=== PATIENT | female | born 1955 | race Caucasian/White ===

== ENCOUNTER → 2018-03-19 | Outpatient (CLI) | payer BC | END | disposition home or self-care (01) | LOC: CFH 14:35 | PROVIDERS: ATTEND Family Medicine | DX: Z12.31 Encounter for screening mammogram for malignant neoplasm of breast (principal) | CPT/HCPCS: 77063; 77067 ==

== ENCOUNTER 2020-11-08 14:27 | Emergency (ER) | payer BC ==
[~2020-11-08] VITALS: Ht 165.1 cm; Wt 102.7 kg
--- NOTE | 2020-11-08 15:15 | NUR ---
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
[2020-11-08 15:23] LABS: BASOPHILS % (AUTO) 0 % (0-1); EOSINOPHILS % (AUTO) 1 % (1-7); LYMPHOCYTES % (AUTO) 29 % (22-44); MD NO; MEAN CORPUSCULAR HEMOGLOBIN 29.5 pg (27.0-34.8); MEAN CORPUSCULAR HGB CONC 33.6 g/dL (32.4-35.8); MEAN PLATELET VOLUME 7.9 fL (7.4-10.4); MONOCYTES % (AUTO) 8 % (2-9); NEUTROPHILS % (AUTO) 62 % (42-75); PLATELET COUNT 324 x10^3/uL (130-400); RED BLOOD COUNT 4.67 x10^6/uL (3.82-5.3); RED CELL DISTRIBUTION WIDTH 12.6 % (9.6-15.2)
[2020-11-08 15:26] LABS: ALBUMIN 3.5 g/dL (3.4-5.0); CALCIUM 9.1 mg/dL (8.5-10.1); CHLORIDE 102 mmol/L (98-107); CREATININE 0.99 mg/dL (0.55-1.02)
[2020-11-08 15:34] LABS: ANION GAP 6 mmol/L (5-15)
[2020-11-08] MEDS ORDERED: MECLIZINE CHEWABLE 25 MG TAB ONE (15:42)
[2020-11-08] MEDS ORDERED: MECLIZINE CHEWABLE 25 MG TAB PO ONE (16:00)
[2020-11-08] MEDS ORDERED: POTASSIUM CHLORIDE 20 MEQ PACKET PO ONE (17:00)
[2020-11-08] MEDS ORDERED: POTASSIUM CHLORIDE 20 MEQ PACKET ONE (17:16)
[2020-11-08 18:16] VITALS: BP 156/62
--- NOTE | 2020-11-08 18:17 | NUR ---
Patient/Caregiver given discharge instructions and they have confirmed that they understand the instructions. Patient ambulatory with steady gait. Pt home with a ride. Pt with stable VS.
== END 2020-11-08 18:22 | disposition home or self-care (01) ==
LOC: ED 17:04
DX: R42 Dizziness and giddiness (principal); R51.9 Headache, unspecified; E87.6 Hypokalemia; I10 Essential (primary) hypertension
CPT/HCPCS: 36415; 70450; 80048; 82040; 85025; 93005; 99285